=== PATIENT | female | born 1970 | race African-American/Black ===

== ENCOUNTER 2016-08-17 17:43 | Emergency (ER) | payer MEDICAID ==
[~2016-08-17] VITALS: Ht 170.2 cm; Wt 86.2 kg
[~2016-08-17 17:43] MED LIST: IBUPROFEN600 MG ORAL; TRAMADOL HCL50 MG ORAL
[2016-08-17] MEDS ORDERED: IBUPROFEN600 MG ORAL (19:06)
[2016-08-17 19:11] VITALS: BP 123/81
--- NOTE | 2016-08-17 22:02 | Emergency Room Report ---
History of Present Illness General Chief Complaint: Lower Extremity Injury Source: Patient Present Illness HPI The patient is a 46 old female presenting for left ankle pain. Patient states that she was hiking yesterday and felt the ankle buckle underneath her. She noticed pain at the time but denies any pain currently. She has noticed swelling to the ankle. She denies prior injury to the area. She denies any other symptoms including numbness, tingling, rash, calf pain Allergies: Coded Allergies: SULFAMETHOXAZOLE (Verified Allergy, Unknown, 08/11/15) TRIMETHOPRIM (Verified Allergy, Unknown, 08/11/15) Patient History Past Medical History: see triage record Last Menstrual Period: 08/16/16 Now: No : 2 Para: 2 Reviewed Nursing Documentation: PMH: Agreed, PSxH: Agreed Nursing Documentation-PMH Past Medical History: No Stated History Review of Systems All Other Systems: negative except mentioned in HPI Physical Exam Vital Signs Date Time Temp Pulse Resp B/P Pulse Ox O2 Delivery O2 Flow Rate FiO2 08/17/16 17:57 98.2 90 17 121/79 98 Room Air Sp02 EP Interpretation: reviewed, normal General Appearance: no apparent distress, alert, GCS 15, non-toxic Head: normocephalic, atraumatic Eyes: bilateral eye PERRL, bilateral eye normal inspection ENT: hearing grossly normal, normal pharynx, no angioedema, normal voice Neck: full range of motion, supple/symm/no masses Respiratory: chest non-tender, lungs clear, normal breath sounds, speaking full sentences Musculoskeletal: back normal, gait/station normal, normal range of motion, swelling, tender - lateral L ankle Neurologic: alert, oriented x3, responsive, motor strength/tone normal, sensory intact, speech normal Psychiatric: judgement/insight normal, memory normal, mood/affect normal, no suicidal/homicidal ideation Skin: normal color, no rash, warm/dry, well hydrated Lymphatic: no adenopathy Procedures Splinting Splinting : Consent: Verbal Location: L ankle Pre-Made Type: ESTEFANY wrap Pre-Proc Neuro Vasc Exam: normal Post-Proc Neuro Vasc Exam: normal Patient Tolerated: Well Complications: None Medical Decision Making PA Attestation Dr. Blancas is my supervising physician. Patient management was discussed with my supervising physician Diagnostic Impression: Primary Impression: Left ankle sprain Qualified Codes: S93.402A - Sprain of unspecified ligament of left ankle, initial encounter ER Course The patient is a 46 old female presenting for left ankle pain. Ddx considered include but not limited to sprain/strain, fracture, contusion Physical exam: Vitals within normal limits. No apparent distress Left ankle: There is tenderness to palpation and edema over the left lateral malleolus. Limited active range of motion. Sensation intact to light touch. X-ray of the left ankle is unremarkable Left ankle placed in ESTEFANY wrap and the patient is provided crutches. ER precautions are given. Patient given prescription for Motrin and will follow up with primary care physician. Other X-Ray Diagnostic Results Other X-Ray Diagnostic Results : X-Ray Ordered: L ankle Date: August 17, 2016 EP Interpretation: Yes Findings: no fractures, no dislocation, no soft tissue swelling Number of Views: 3 PA Scribe Text I am acting as scribe for my supervising physician. My supervising physician's interpretation of the L ankle xrays are there are no fractures, dislocations or soft tissue swelling. Last Vital Signs Date Time Temp Pulse Resp B/P Pulse Ox O2 Delivery O2 Flow Rate FiO2 08/17/16 19:11 87 14 123/81 99 Room Air 08/17/16 17:57 98.2 Status: improved Disposition: HOME, SELF-CARE Condition: Improved Scripts Ibuprofen* (MOTRIN*) 600 Mg Tablet 600 MG ORAL Q8H Y for For Pain, #30 TAB 0 Refills Prov: BLANCA RIDER 08/17/16 Patient Instructions: Ankle Sprain Additional Instructions: I discussed my findings with the patient. All questions and concerns have been answered. Treatment and medication compliance have been addressed. I advised the patient that they need to follow up with PMD in 3-5 days. Return to ED if pain remains or worsens, numbness or tingling occurs, new rash is noticed, fever is noticed, or if needed for any reason. Patient verbalized understanding of discharge instructions. BLANCA RIDER August 17, 2016 22:02
--- NOTE | 2016-08-18 12:24 | Diagnostic Imaging Report ---
Indication: PAIN Technique: 3 views of the left ankle Comparison: none Findings: No acute fractures. No dislocations. Joint spaces are preserved Impression: No acute process
== END 2016-08-17 19:17 | disposition home or self-care (01) ==
LOC: EMR 18:25
DX: S93.402A Sprain of unspecified ligament of left ankle, initial encounter (principal); X58.XXXA Exposure to other specified factors, initial encounter; Y93.01 Activity, walking, marching and hiking; Y92.9 Unspecified place or not applicable; Z88.2 Allergy status to sulfonamides; Z88.8 Allergy status to other drugs, medicaments and biological substances
CPT/HCPCS: 29540; 99283

== ENCOUNTER 2017-07-31 22:30 | Emergency (ER) | payer OTHER, MEDICAID ==
[~2017-07-31] VITALS: Ht 167.6 cm; Wt 90.7 kg
[2017-07-31] MEDS ORDERED: NKM (22:37)
[2017-07-31 22:39] VITALS: BP 105/71
[2017-07-31] MEDS ORDERED: IBUPROFEN600 MG ORAL (22:54)
[2017-07-31] MEDS ORDERED: PENICILLIN V P500 MG PO (22:54)
[2017-07-31] MEDS ORDERED: PERIDEX15 ML MM (22:56)
[2017-07-31 23:05] VITALS: BP 105/71
--- NOTE | 2017-08-01 00:46 | Emergency Room Report ---
History of Present Illness General Chief Complaint: Toothache Source: Patient Present Illness HPI Patient is a 47-year-old female who presented after increased dental pain. Patient gradual onset of symptoms. Patient reportedly had been noticing increased swelling near her upper left gums. The she denies any recent trauma. She had not been taking any antibiotics. She did not see a dentist.The patient denies any fever or other facial swelling. Allergies: Coded Allergies: SULFAMETHOXAZOLE (Verified Allergy, Unknown, 07/31/17) TRIMETHOPRIM (Verified Allergy, Unknown, 07/31/17) Patient History Past Medical History: see triage record Last Menstrual Period: 07/30/17 Now: No Reviewed Nursing Documentation: PMH: Agreed; PSxH: Agreed Nursing Documentation-PMH Past Medical History: No Stated History Review of Systems All Other Systems: negative except mentioned in HPI Physical Exam Vital Signs Date Time Temp Pulse Resp B/P (MAP) Pulse Ox O2 Delivery O2 Flow Rate FiO2 07/31/17 22:33 98.3 76 16 105/71 94 Room Air 98.2 General Appearance: well appearing, no apparent distress, alert, GCS 15 Head: normocephalic, atraumatic ENT: hearing grossly normal, normal voice, other - small amount of soft tissue swelling near left upper bicuspid area gingiva Neck: full range of motion, supple Respiratory: no respiratory distress, speaking full sentences Cardiovascular #1: normal peripheral pulses, regular rate, rhythm Musculoskeletal: no calf tenderness Neurologic: normal gait Psychiatric: mood/affect normal Skin: no rash Medical Decision Making Diagnostic Impression: Primary Impression: Dental infection ER Course The patient presented for dental pain.Differential diagnosis included but was not limited to trigeminal neuralgia, dental abscess, dry socket, osteomyelitis, nerve injury. The patient was noted to have a benign exam. The patient was given prescription for oral antibiotics to 2 white appears to be a gingival infection . The patient is advised to follow up with dentist in 1-2 days. Patient is advised to return if any worsening condition or if any changes in status that are concerning. Last Vital Signs Date Time Temp Pulse Resp B/P (MAP) Pulse Ox O2 Delivery O2 Flow Rate FiO2 07/31/17 23:05 98.3 07/31/17 23:05 76 16 105/71 94 Room Air Status: improved Disposition: HOME, SELF-CARE Condition: Stable Scripts Chlorhexidine Gluconate (Peridex) 15 Ml Mouthwash 15 ML MM TWICE A DAY, #120 ML Prov: Sergio Blancas 07/31/17 Penicillin V Potassium* (PENVK*) 500 Mg Tablet 500 MG PO Q6H, #28 TAB 0 Refills Prov: Sergio Blancas 07/31/17 Ibuprofen* (MOTRIN*) 600 Mg Tablet 600 MG ORAL THREE TIMES A DAY, #30 TAB 0 Refills Prov: Sergio Blancas 07/31/17 Referrals: NON PHYSICIAN (PCP) Patient Instructions: Dental Pain Sergio Blancas August 01, 2017 00:46
== END 2017-08-01 00:34 | disposition home or self-care (01) ==
LOC: EMR 08-01 00:18
DX: K04.7 Periapical abscess without sinus (principal); Z88.2 Allergy status to sulfonamides
CPT/HCPCS: 99284

== ENCOUNTER 2017-10-26 16:51 | Emergency (ER) | payer OTHER, MEDICAID ==
[~2017-10-26] VITALS: Ht 167.6 cm; Wt 90.7 kg
[~2017-10-26 16:51] MED LIST changes: +NKM; +PENICILLIN V P500 MG PO; +PERIDEX15 ML MM
--- NOTE | 2017-10-26 17:11 | Emergency Room Report ---
History of Present Illness General Chief Complaint: Lower Extremity Injury Source: Patient Present Illness HPI 47-year-old female patient presents ER complaining of left foot second digit toe pain. Reports that she was in the house yesterday walking to the door when she stubbed her toe on the couch. Reports she took Aleve yesterday for pain symptoms, states has not taken anything since that time. Reports pain and swelling at site of injury. Reports is able to ambulate since that time but walks on ball of foot due to pain. Reports not as painful so did not take medication today. Denies other acute symptoms. denies fever, chest pain, shortness of breath. Denies radiation of pain. Allergies: Coded Allergies: SULFAMETHOXAZOLE (Verified Allergy, Unknown, 07/31/17) TRIMETHOPRIM (Verified Allergy, Unknown, 07/31/17) Patient History Past Medical History: see triage record Last Menstrual Period: 10/11/17 Now: No Reviewed Nursing Documentation: PMH: Agreed; PSxH: Agreed Nursing Documentation-PMH Past Medical History: No Stated History Review of Systems All Other Systems: negative except mentioned in HPI Physical Exam Vital Signs Date Time Temp Pulse Resp B/P (MAP) Pulse Ox O2 Delivery O2 Flow Rate FiO2 10/26/17 16:56 98.1 79 16 113/75 97 Room Air 98.1 Sp02 EP Interpretation: reviewed, normal General Appearance: well appearing, no apparent distress, alert, GCS 15, non- toxic Head: normocephalic, atraumatic Eyes: bilateral eye normal inspection, bilateral eye PERRL ENT: hearing grossly normal, normal pharynx, no angioedema, normal voice, uvula midline, moist mucus membranes Neck: full range of motion Respiratory: lungs clear, normal breath sounds, no rhonchi, no respiratory distress, no accessory muscle use, no wheezing, speaking full sentences Cardiovascular #1: regular rate, rhythm, no edema Cardiovascular #2: 2+ dorsalis pedis (R), 2+ dorsalis pedis (L) Musculoskeletal: back normal, digits/nails normal, gait/station normal, normal range of motion, swelling - over left foot second digit, other - able to wiggle toes, cap refill less than 2 seconds, no subungual hematoma, sensation intact to light touch; ecchymosis noted over the MTP and DIP of left foot second digit , no deformity noted, tender - MTP joint of second digit Neurologic: alert, oriented x3, responsive, motor strength/tone normal, sensory intact Psychiatric: mood/affect normal Medical Decision Making PA Attestation Dr. Damico is my supervising Physician whom patient management has been discussed with. Diagnostic Impression: Primary Impression: Toe fracture, left ER Course Pt. presents to the ED c/o left foot second digit pain. Ddx considered but are not limited to fracture, sprain, strain, contusion, dislocation. No erythema, no warmth to touch, no fever, nontoxic appearing, low suspicion for septic joint. Vital signs: are WNL, pt. is afebrile Ordered X-ray and pain medication. ER COURSE Ordered acetone to remove nail indonesian, no subungal hematoma noted. Does not require trephination. Provided with pain medication. An X-ray of the left foot shows a fracture on the proximal phalanx of the second digit of the left toe. Informed patient of results. Toe was haleigh taped and put placed into a postop shoe and was checked afterwards by me showing good alignment and support with distal neurovascular functioning intact. Crutches provided. Provided with contact information for orthopedic urgent care and livestock dealer Dr. Alarcon if unable to followup with PCP and get referral. Patient instructed on RICE method: rest, ice, compression, elevation. Patient instructed on rest, ice and heat. Patient instructed to be WBAT Followup with primary care provider. Discuss referral to ortho/pain management/ PT as needed. Discuss further imaging with MRI/CT as needed. DISCHARGE: -Rx provided for Tylenol for pain symptoms. At this time pt. is stable for d/c to home. Patient is resting comfortably, in no acute distress, nontoxic appearing, talking without difficulty. Will provide printed patient care instructions, and any necessary prescriptions. Patient instructed to follow with primary care provider in 3 - 5 days and to request further follow-up as needed. Care plan and follow up instructions have been discussed with the patient prior to discharge. Take medications as directed. Patient questions asked and answered. Patient reports understanding and agreement to treatment plan. ER precautions given, patient instructed to return to ER immediately for any new or worsening of symptoms. - Please note that this Emergency Department Report was dictated using [employer] technology software, occasionally this can lead to erroneous entry secondary to interpretation by the dictation equipment. Other X-Ray Diagnostic Results Other X-Ray Diagnostic Results : X-Ray ordered: left foot # of Views/Limited Vs Complete: 3 View Indication: Pain EP Interpretation: Yes PA Xray: Interpretation reviewed, by supervising MD, and agrees with findings. Interpretation: no dislocation, no soft tissue swelling, other - fracture Impression: Other - nondisplaced fracture of proximal phalanx of second digit on left foot PA Scribe Text Jhony CANELA-Stephany Last Vital Signs Date Time Temp Pulse Resp B/P (MAP) Pulse Ox O2 Delivery O2 Flow Rate FiO2 10/26/17 16:56 98.1 79 16 113/75 97 Room Air 98.1 Disposition: HOME, SELF-CARE Condition: Stable Scripts Acetaminophen* (TYLENOL EXTRA STRENGTH*) 500 Mg Tablet 500 MG ORAL Q8H PRN for Prn Headache/Temp > 101, #30 TAB 0 Refills Prov: Ashutosh Hampton 10/26/17 Patient Instructions: Toe Fracture Additional Instructions: Patient instructed to follow up with primary care provider and discuss further referral to orthopedics. Provided with contact information for orthopedic urgent care and livestock dealer if unable to followup with PCP and get referral. Patient instructed on RICE method: rest, ice, compression, elevation. Patient instructed to WBAT. Take medications as directed. Patient questions asked and answered. ER precautions given, patient instructed to return to ER immediately for any new or worsening of symptoms. Ashutosh Hampton Oct 26, 2017 17:11
[2017-10-26] MEDS ORDERED: TYLENOL EXTRA500 MG ORAL (17:21)
[2017-10-26 17:46] VITALS: BP 122/71
[2017-10-26] MEDS ORDERED: Nail Polish Remover TOPIC ONE (18:00)
--- NOTE | 2017-10-27 08:20 | Diagnostic Imaging Report ---
Indication: Foot pain Technique: 3 views left foot Comparison: none Findings: No acute fractures. No dislocations. The joint spaces are preserved. Impression: Negative
== END 2017-10-26 17:46 | disposition home or self-care (01) ==
LOC: EMR 17:05
DX: S92.512A Displaced fracture of proximal phalanx of left lesser toe(s), initial encounter for closed fracture (principal); W22.03XA Walked into furniture, initial encounter; Y93.01 Activity, walking, marching and hiking; Y92.018 Other place in single-family (private) house as the place of occurrence of the external cause
CPT/HCPCS: 99283

== ENCOUNTER 2018-01-14 21:33 | Emergency (ER) | payer OTHER, MEDICAID ==
[~2018-01-14] VITALS: Ht 170.2 cm; Wt 86.2 kg
[~2018-01-14 21:33] MED LIST changes: +TYLENOL EXTRA500 MG ORAL
[2018-01-14 21:48] VITALS: BP 102/72
[2018-01-14] MEDS ORDERED: Clindamycin 150mg cap ORAL STA (22:08)
--- NOTE | 2018-01-14 22:12 | Emergency Room Report ---
History of Present Illness General Chief Complaint: Skin Rash/Abscess Source: Patient Present Illness HPI Patient presents with multiple bites on her arms and neck. She works on [employer]. She says they've been itching and also swelling and there is some redness. She doesn't remember her last tetanus shot. She denies any nausea vomiting diarrhea dysuria a sore throat cough. The patient states she cannot take Bactrim. Denies diabetes. Allergies: Coded Allergies: SULFAMETHOXAZOLE (Verified Allergy, Unknown, 07/31/17) TRIMETHOPRIM (Verified Allergy, Unknown, 07/31/17) Patient History Past Medical History: see triage record Social History: Reports: smoking Social History Narrative works on [employer] Last Menstrual Period: 01/07/18 Reviewed Nursing Documentation: PMH: Agreed; PSxH: Agreed Nursing Documentation-PMH Past Medical History: No Stated History Review of Systems Constitutional: Denies: chills, fever ENT: Reports: see HPI Respiratory: Reports: see HPI Cardiovascular: Denies: chest pain Gastrointestinal: Reports: see HPI Musculoskeletal: Denies: back pain, joint pain, joint swelling Skin: Reports: see HPI Neurological: Denies: headache Endocrine: Reports: see HPI Physical Exam Vital Signs Date Time Temp Pulse Resp B/P (MAP) Pulse Ox O2 Delivery O2 Flow Rate FiO2 01/14/18 21:44 99.1 84 16 102/72 96 Room Air 99.1 Sp02 EP Interpretation: reviewed, normal General Appearance: normal inspection, well appearing, no apparent distress Head: normocephalic, atraumatic Eyes: bilateral eye normal inspection, bilateral eye PERRL ENT: moist mucus membranes Neck: full range of motion, supple Respiratory: lungs clear Cardiovascular #1: normal peripheral pulses, regular rate, rhythm Cardiovascular #2: 2+ radial (R) Gastrointestinal: normal inspection Musculoskeletal: back normal, digits/nails normal, gait/station normal, normal range of motion Neurologic: alert, oriented x3, grossly normal Psychiatric: mood/affect normal Skin: other - erthematous lesions with some swelling Medical Decision Making Diagnostic Impression: Primary Impression: Bug bites Qualified Codes: W57.XXXA - Bitten or stung by nonvenomous insect and other nonvenomous arthropods, initial encounter Additional Impression: MRSA (methicillin resistant Staphylococcus aureus) ER Course Patient presents with multiple bites with erythema. None are fluctuance and do not need incision and drainage. However antibiotics and tetanus are indicated. Unable to take bactrim, so clindamycin will be used. Not toxic. No co-morbidities. No evidence of typhus. Patient stable for outpatient observation and treatment. Last Vital Signs Date Time Temp Pulse Resp B/P (MAP) Pulse Ox O2 Delivery O2 Flow Rate FiO2 01/14/18 23:17 99.1 78 16 102/72 96 Room Air 99.1 Status: improved Disposition: HOME, SELF-CARE Condition: Improved Scripts Bacitracin (Bacitracin) 28.4 Gm Oint...g. 1 APPLIC TOPIC BID, #20 GM Prov: Jose A Ovalle M.D. 01/14/18 Hydrocortisone/Aloe Vera 1%* (HYDROCORTISONE-ALOE 1% CREAM*) Y Cr 1 APPLIC TOPIC Q6H PRN for Itching, #30 GM Prov: Jose A Ovalle M.D. 01/14/18 Clindamycin Hcl (CLINDAMYCIN HCL) 300 Mg Capsule 300 MG ORAL THREE TIMES A DAY, #21 CAP Prov: Jose A Ovalle M.D. 01/14/18 Jose A Ovalle M.D. Jan 14, 2018 22:12
[2018-01-14] MEDS ORDERED: CLINDAMYCIN HC300 MG ORAL (22:14)
[2018-01-14] MEDS ORDERED: BACITRACIN15 GM TOPIC (22:14)
[2018-01-14] MEDS ORDERED: HYDROCORTISONE-30 GM TOPIC (22:14)
[2018-01-14] MEDS ORDERED: Tetanus/Diptheria/Pertussis Vaccine 0.5ml Syr IM ONE (22:15)
[2018-01-14] MEDS ORDERED: Bacitracin Oint UD TOPIC ONE (22:15)
[2018-01-14 23:17] VITALS: BP 102/72
== END 2018-01-14 23:17 | disposition home or self-care (01) ==
LOC: EMR 22:14
DX: S40.862A Insect bite (nonvenomous) of left upper arm, initial encounter (principal); S40.861A Insect bite (nonvenomous) of right upper arm, initial encounter; S10.96XA Insect bite of unspecified part of neck, initial encounter; W57.XXXA Bitten or stung by nonvenomous insect and other nonvenomous arthropods, initial encounter; Y92.9 Unspecified place or not applicable; A49.02 Methicillin resistant Staphylococcus aureus infection, unspecified site; Z23 Encounter for immunization; Z88.2 Allergy status to sulfonamides; F17.200 Nicotine dependence, unspecified, uncomplicated
CPT/HCPCS: 90471; 90715; 99283

== ENCOUNTER 2018-01-25 19:41 | Emergency (ER) | payer OTHER, MEDICAID ==
[~2018-01-25] VITALS: Ht 170.2 cm; Wt 86.2 kg
[~2018-01-25 19:41] MED LIST changes: +BACITRACIN15 GM TOPIC; +CLINDAMYCIN HC300 MG ORAL; +HYDROCORTISONE-30 GM TOPIC
[2018-01-25 19:48] VITALS: BP 114/73
[2018-01-25] MEDS ORDERED: PREDNISONE20 MG ORAL (20:12)
[2018-01-25] MEDS ORDERED: BENADRYL25 M3 PO (20:12)
--- NOTE | 2018-01-25 20:16 | Emergency Room Report ---
History of Present Illness General Chief Complaint: Skin Rash/Abscess Source: Patient Present Illness HPI Patient present with complaints of several areas of redness and what appears to be likely insect bite involving the left shoulder Right back area Right leg The areas are fairly puritic in nature Patient denies any fevers denies any chest pain or short of breath Patient reports that she worse in skin a row And had similar presentation last week Allergies: Coded Allergies: SULFAMETHOXAZOLE (Verified Allergy, Unknown, 01/25/18) TRIMETHOPRIM (Verified Allergy, Unknown, 01/25/18) Patient History Past Medical History: see triage record Pertinent Family History: none Last Menstrual Period: currently on Reviewed Nursing Documentation: PMH: Agreed; PSxH: Agreed Nursing Documentation-PMH Past Medical History: No Stated History Review of Systems All Other Systems: negative except mentioned in HPI Physical Exam Vital Signs Date Time Temp Pulse Resp B/P (MAP) Pulse Ox O2 Delivery O2 Flow Rate FiO2 01/25/18 19:47 98.4 87 16 114/73 98 Room Air Sp02 EP Interpretation: reviewed, normal General Appearance: well appearing, no apparent distress Head: normocephalic, atraumatic Eyes: bilateral eye PERRL, bilateral eye EOMI ENT: hearing grossly normal, normal pharynx, TMs + canals normal, uvula midline Neck: full range of motion, supple, no meningismus, no bony tend Respiratory: lungs clear, normal breath sounds, no rhonchi, no respiratory distress, no retraction, no accessory muscle use Cardiovascular #1: normal peripheral pulses, regular rate, rhythm, no edema, no gallop, no JVD, no murmur Gastrointestinal: normal bowel sounds, non tender, soft, no mass, no organomegaly, non-distended, no guarding, no hernia, no pulsatile mass, no rebound Musculoskeletal: normal inspection Neurologic: oriented x3, responsive, director of customer service III-XII nml as tested, motor strength/ tone normal, sensory intact Psychiatric: mood/affect normal Skin: other - Several areas of raised erythematous lesions including the left back shoulder right flank region, dorsal of the right foot fall areas are fairly well circumscribed does not show any flaring or fluctuance no dermatomal spread,,, Lymphatic: normal inspection, no adenopathy Medical Decision Making Diagnostic Impression: Primary Impression: Rash and other nonspecific skin eruption Additional Impression: Bug bites ER Course Patient's exam is consistent with what appears to be localized reaction to insect bite patient is treated symptomatically I cannot appreciate any obvious infected area And patient will have close outpatient follow-up Last Vital Signs Date Time Temp Pulse Resp B/P (MAP) Pulse Ox O2 Delivery O2 Flow Rate FiO2 01/25/18 19:48 98.4 84 16 114/73 98 Room Air Status: improved Disposition: HOME, SELF-CARE Condition: Improved Scripts Prednisone* (PREDNISONE*) 20 Mg Tablet 20 MG ORAL BID, #10 TAB Prov: Monica Damico DO 01/25/18 Diphenhydramine HCl (Benadryl) 25 Mg Capsule 25 MG PO TID, #20 CAP Prov: Monica Damico DO 01/25/18 Patient Instructions: Rash, Insect Bite, [id number] Additional Instructions: Patient is provided with the discharge instructions notified to follow up with primary doctor in the next 2-3 days otherwise return to the er with any worsening symptoms. Please note that this report is being documented using [employer] technology. This can lead to erroneous entry secondary to incorrect interpretation by the dictating instrument. Monica Damico DO Jan 25, 2018 20:16
[2018-01-25 20:26] VITALS: BP 114/73
== END 2018-01-25 20:30 | disposition home or self-care (01) ==
LOC: EMR 20:23
DX: R21 Rash and other nonspecific skin eruption (principal); W57.XXXA Bitten or stung by nonvenomous insect and other nonvenomous arthropods, initial encounter; Y92.9 Unspecified place or not applicable; Z88.2 Allergy status to sulfonamides
CPT/HCPCS: 99283; J7512

== ENCOUNTER 2018-10-11 20:42 | Emergency (ER) | payer MEDICAID, OTHER ==
[~2018-10-11] VITALS: Ht 170.2 cm; Wt 90.7 kg
[~2018-10-11 20:42] MED LIST changes: +BENADRYL25 M3 PO; +PREDNISONE20 MG ORAL
--- NOTE | 2018-10-11 21:05 | NUR ---
ED Nurse Note: RECIEVED PT FROM HOME, WITH C/O VAG BLEEDING X 15 DAYS, PT STATES SHE IS IN MENOPAUSE, DENIES ANY OTHER COMPLAINTS.
--- NOTE | 2018-10-11 21:09 | Emergency Room Report ---
History of Present Illness General Chief Complaint: Female Urogenital Problems Source: Patient Present Illness [facility] This a 48-year-old female with a history of blood clots. She is also a smoker. She presents with chief complaint of vaginal bleeding. This been ongoing for 15 days. She says she is bleeding heavily. About 10 pads a day. No nausea no vomiting. Now with some lightheadedness. No chest pain. No diaphoresis. Worse with exertion. Similar symptom in the past. Has not seen a mannequin molder. She said her appointment will be for another 2 weeks. Allergies: Coded Allergies: SULFAMETHOXAZOLE (Verified Allergy, Unknown, 01/25/18) TRIMETHOPRIM (Verified Allergy, Unknown, 01/25/18) Patient History Past Medical History: see triage record, old chart reviewed Past Surgical History: other Pertinent Family History: none Social History: Reports: smoking Last Menstrual Period: now Now: No Immunizations: other Reviewed Nursing Documentation: PMH: Agreed; PSxH: Agreed Nursing Documentation-PMH Past Medical History: No Stated History Review of Systems Eye: Denies: eye pain, blurred vision ENT: Denies: ear pain, nose congestion, throat swelling Respiratory: Denies: cough, shortness of breath Cardiovascular: Denies: chest pain, palpitations Gastrointestinal: Denies: abdominal pain, diarrhea, nausea, vomiting Genitourinary: Reports: vag bleed/dc Musculoskeletal: Denies: back pain, joint pain Skin: Denies: rash Neurological: Denies: headache, numbness Endocrine: Denies: increased thirst, increased urine Hematologic/Lymphatic: Denies: easy bruising All Other Systems: negative except mentioned in HPI Physical Exam Vital Signs Date Time Temp Pulse Resp B/P (MAP) Pulse Ox O2 Delivery O2 Flow Rate FiO2 10/11/18 20:53 98.1 85 20 115/77 (90) 97 Room Air Vitals normal Sp02 EP Interpretation: reviewed, normal General Appearance: well appearing, no apparent distress, alert Head: normocephalic, atraumatic Eyes: bilateral eye PERRL, bilateral eye EOMI ENT: hearing grossly normal, normal pharynx Neck: full range of motion, supple, no meningismus Respiratory: chest non-tender, lungs clear, normal breath sounds Cardiovascular #1: regular rate, rhythm, no murmur Gastrointestinal: normal bowel sounds, non tender, no mass, no organomegaly, no bruit, non-distended Musculoskeletal: back normal, gait/station normal, normal range of motion Psychiatric: mood/affect normal Medical Decision Making Diagnostic Impression: Primary Impression: Dysfunctional uterine bleeding ER Course Patient presents with dysfunctional uterine bleeding. No evidence of severe anemia. Initially patient was to be put on control pill to control her eating. I told the patient that she is has several occasion. Her age, current smoking status, and blood clot history or contraindication. There is no emergent issue here in the ER. She can be follow-up with mannequin molder. Last Vital Signs Date Time Temp Pulse Resp B/P (MAP) Pulse Ox O2 Delivery O2 Flow Rate FiO2 10/11/18 20:53 98.1 85 20 115/77 (90) 97 Room Air Status: unchanged Disposition: HOME, SELF-CARE Condition: Stable Scripts Ibuprofen* (MOTRIN*) 600 Mg Tablet 600 MG ORAL THREE TIMES A DAY, #30 TAB 0 Refills Prov: Bogdan Rios MD 10/11/18 Additional Instructions: Follow-up with your mannequin molder in 1 to 2 weeks. Return if symptoms worsen. Bogdan Rios MD Oct 11, 2018 21:09
[2018-10-11 21:26] LABS: BASOPHILS % (AUTO) 2.4 % (0.0-2.0); EOSINOPHILS % (AUTO) 2.2 % (0.0-3.0); HEMATOCRIT 35.2 % (37.0-47.0); HEMOGLOBIN 12.1 G/DL (12.0-16.0); MEAN CORPUSCULAR VOLUME 93 FL (80-99); MONOCYTES % (AUTO) 6.1 % (1.0-10.0); NEUTROPHILS % (AUTO) 48.3 % (45.0-75.0); PLATELET COUNT 277 K/UL (150-450); RED BLOOD COUNT 3.77 M/UL (4.20-5.40); RED CELL DISTRIBUTION WIDTH 12.1 % (11.6-14.8); WHITE BLOOD COUNT 6.3 K/UL (4.8-10.8)
[2018-10-11 21:40] LABS: APPEARANCE,URINE CLOUDY; BILIRUBIN, URINE NEGATIVE (NEGATIVE); COLOR,URINE PALE YELLOW; GLUCOSE, URINE (UA) NEGATIVE (NEGATIVE); KETONES,URINE NEGATIVE (NEGATIVE); LEUKOCYTE ESTERASE ,URINE 1+ (NEGATIVE); NITRITE,URINE NEGATIVE (NEGATIVE); PH,URINE 6.5 (4.5-8.0); PROTEIN,URINE 1+ (NEGATIVE); UROBILINOGEN,URINE NORMAL MG/DL (0.0-1.0)
[2018-10-11] MEDS ORDERED: IBUPROFEN600 MG ORAL (21:51)
[2018-10-11 22:00] VITALS: BP 115/77
--- NOTE | 2018-10-11 22:00 | NUR ---
ER DISCHARGE NOTE: Patient is cleared to be discharged per ERMD, pt is aox4, on room air, with stable vital signs. pt was given dc and prescription instructions, pt was able to verbalize understanding, pt id band removed without complications. pt is able to ambulate with steady gait. pt took all belongings.
== END 2018-10-11 22:00 | disposition home or self-care (01) ==
LOC: EMR 21:58
DX: N93.9 Abnormal uterine and vaginal bleeding, unspecified (principal); F17.200 Nicotine dependence, unspecified, uncomplicated; Z88.2 Allergy status to sulfonamides; Z88.8 Allergy status to other drugs, medicaments and biological substances
CPT/HCPCS: 36415; 81003; 81025; 85025; 99284

== ENCOUNTER 2018-12-10 20:08 | Emergency (ER) | payer BC ==
[~2018-12-10] VITALS: Ht 170.2 cm; Wt 93.0 kg
[2018-12-10 20:15] VITALS: BP 129/82
--- NOTE | 2018-12-10 20:15 | NUR ---
ED Nurse Note: pt ambulated to ed c/o "difficulty breathing". pt denies, hx of asthma and COPD. pt states she quit smoking two weeks ago. bilateral lung sounds clear. slight audible wheezes on expiration. pt is able to speak complete sentences without shortness of breath. son - chris at bedside.
--- NOTE | 2018-12-10 20:15 | NUR ---
Note undone in EDM - 12/10/18 at 2032 by LENNY ED Nurse Note: pt ambulated to ed c/o "difficulty breathing". pt denies, hx of asthma, COPD, or HTN. pt states she quit smoking two weeks ago. bilateral lung sounds clear. slight audible wheezes on expiration. pt is able to speak complete sentences without shortness of breath. burton perez at bedside.
--- NOTE | 2018-12-10 20:40 | NUR ---
ED Nurse Note: IV line established, blood specimen sent to lab. RT at bedside
[2018-12-10] MEDS ORDERED: Albuterol ud Inhalation HHN ONE (20:45)
[2018-12-10 20:55] VITALS: BP_SYST 117; BP_SYST 121; BP_SYST 123; BP_DIAS 73; BP_DIAS 76
[2018-12-10 20:55] LABS: BASOPHILS % (AUTO) 2.1 % (0.0-2.0); EOSINOPHILS % (AUTO) 2.1 % (0.0-3.0); HEMATOCRIT 37.9 % (37.0-47.0); MEAN CORPUSCULAR VOLUME 93 FL (80-99); MONOCYTES % (AUTO) 10.1 % (1.0-10.0); NEUTROPHILS % (AUTO) 43.7 % (45.0-75.0); PLATELET COUNT 300 K/UL (150-450); RED BLOOD COUNT 4.09 M/UL (4.20-5.40); RED CELL DISTRIBUTION WIDTH 12.1 % (11.6-14.8); WHITE BLOOD COUNT 6.8 K/UL (4.8-10.8)
--- NOTE | 2018-12-10 20:55 | NUR ---
ED Nurse Note: xray complete
--- NOTE | 2018-12-10 21:04 | Emergency Room Report ---
History of Present Illness General Chief Complaint: Dyspnea/Respdistress Source: Patient, Family Member, Medical Record Present Illness HPI Patient presents with dyspnea on exertion and resting dyspnea. This is been going on for a month according to her son but the patient states it worsened over the last 2 weeks. She has minimal exertional dyspnea at this time. She was recently admitted November 26 at [facility] and had a evaluation with echocardiogram chest x-ray and noninvasive vascular study of lower extremities. There is no access to the echocardiogram results but d-dimer was negative as were other labs. No medications were prescribed at discharge. The patient denies fever or productive cough. She stopped smoking a week ago. She has not heard herself wheezing. She initially stated she never had used an inhaler although she had childhood asthma. Later she admits to using an inhaler 4 times a day. Particularly in the last 2 days. It does not seem to be helping. Denies chest pain per se but feels chest pressure with when she is walking. She denies any calf pain or edema. Her periods are starting to become irregular. Her mother went through menopause at an earlier age than she. She has not been evaluated for menopausal symptoms recently. She has some stress with her job. 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 In addition later she describes that her mother has stage IV cancer and she is been trying to care for her in addition to working. 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 Reviewed Nursing Documentation: PMH: Agreed; PSxH: Agreed Nursing Documentation-PMH Past Medical History: No History, Except For Hx Hypertension: Yes Review of Systems All Other Systems: negative except mentioned in HPI Physical Exam Vital Signs Date Time Temp Pulse Resp B/P (MAP) Pulse Ox O2 Delivery O2 Flow Rate FiO2 12/10/18 20:13 98.6 61 18 129/82 (98) 98 Room Air Sp02 EP Interpretation: reviewed, normal General Appearance: well appearing, no apparent distress, GCS 15 Head: normocephalic, atraumatic Eyes: bilateral eye normal inspection, bilateral eye PERRL, bilateral eye EOMI ENT: moist mucus membranes Neck: supple Respiratory: chest non-tender, lungs clear, normal breath sounds Cardiovascular #1: regular rate, rhythm, no edema Cardiovascular #2: 2+ radial (R) Gastrointestinal: normal inspection, normal bowel sounds, non tender, no mass, non-distended Genitourinary: no CVA tenderness Musculoskeletal: back normal, digits/nails normal, gait/station normal, normal range of motion, no calf tenderness, Major's Sign negative Neurologic: alert, oriented x3, grossly normal Psychiatric: depressed affect, anxious Skin: no rash, warm/dry Medical Decision Making Diagnostic Impression: Primary Impression: Dyspnea Qualified Codes: R06.09 - Other forms of dyspnea Additional Impressions: Situational stress Bronchospasm Perimenopausal ER Course Patient presents with dyspnea and dyspnea on exertion post evaluation at [facility] 2 weeks ago which was negative. Differential includes atypical chest pain, unstable angina, bronchospasm, anxiety, electrolyte imbalance, pulmonary embolus, perimenopausal amongst others. Based on her physical exam pulmonary embolus is very unlikely. As she had a hypotension there orthostatics will be performed here. Evaluation with EKG, chest x-ray and labs. A breathing treatment is ordered. The patient is placed on a phototypesetting equipment monitor. Records from [facility] reviewed in detail. EKG normal sinus rhythm with nonspecific ST-T wave changes rate of 61. Labs unremarkable. Some pyuria however contaminated specimen. Patient is not orthostatic. Patient improved with treatment. Less dyspnea. Discussed findings with patient and exclusion of significant life-threatening cardiopulmonary disease at this time. Discussed most likely etiologies for dyspnea Provided support for smoking cessation. Discussed recognition of significant stress. Also discussed plan for treatment with prednisone and also Ativan. Stressed the need for follow-up with her own doctors. Discussed treatment plan with patient and son. Patient improved and stable for outpatient observation and treatment. Laboratory Tests Test 12/10/18 20:40 12/10/18 21:00 White Blood Count 6.8 K/UL (4.8-10.8) Red Blood Count 4.09 M/UL (4.20-5.40) L Hemoglobin 13.0 G/DL (12.0-16.0) Hematocrit 37.9 % (37.0-47.0) Mean Corpuscular Volume 93 FL (80-99) Mean Corpuscular Hemoglobin 31.6 PG (27.0-31.0) H Mean Corpuscular Hemoglobin Concent 34.2 G/DL (32.0-36.0) Red Cell Distribution Width 12.1 % (11.6-14.8) Platelet Count 300 K/UL (150-450) Mean Platelet Volume 5.7 FL (6.5-10.1) L Neutrophils (%) (Auto) 43.7 % (45.0-75.0) L Lymphocytes (%) (Auto) 42.0 % (20.0-45.0) Monocytes (%) (Auto) 10.1 % (1.0-10.0) H Eosinophils (%) (Auto) 2.1 % (0.0-3.0) Basophils (%) (Auto) 2.1 % (0.0-2.0) H Erythrocyte Sedimentation Rate 24 MM/HR (0-20) H Prothrombin Time 13.1 SEC (9.30-11.50) H Prothrombin Time INR 1.2 (0.9-1.1) H PTT 44 SEC (23-33) H Sodium Level 143 MMOL/L (136-145) Potassium Level 4.1 MMOL/L (3.5-5.1) Chloride Level 108 MMOL/L (98-107) H Carbon Dioxide Level 27 MMOL/L (21-32) Anion Gap 8 mmol/L (5-15) Blood Urea Nitrogen 8 mg/dL (7-18) Creatinine 0.7 MG/DL (0.55-1.30) Estimate Glomerular Filtration Rate > 60 mL/min (>60) Glucose Level 96 MG/DL (74-106) Calcium Level 9.1 MG/DL (8.5-10.1) Magnesium Level 1.9 MG/DL (1.8-2.4) Total Bilirubin 0.4 MG/DL (0.2-1.0) Aspartate Amino Transferase (AST) 17 U/L (15-37) Alanine Aminotransferase (ALT) 16 U/L (12-78) Alkaline Phosphatase 75 U/L (46-116) Total Creatine Kinase 121 U/L (26-308) Troponin I 0.000 ng/mL (0.000-0.056) Pro-B-Type Natriuretic Peptide 17 pg/mL (0-125) Total Protein 7.0 G/DL (6.4-8.2) Albumin 3.5 G/DL (3.4-5.0) Globulin 3.5 g/dL Albumin/Globulin Ratio 1.0 (1.0-2.7) Thyroid Stimulating Hormone (TSH) 2.583 uiU/mL (0.358-3.740) Urine Color Pale yellow Urine Appearance Clear Urine pH 8 (4.5-8.0) Urine Specific [place] 1.010 (1.005-1.035) Urine Protein Negative (NEGATIVE) Urine Glucose (UA) Negative (NEGATIVE) Urine Ketones Negative (NEGATIVE) Urine Blood Negative (NEGATIVE) Urine Nitrite Negative (NEGATIVE) Urine Bilirubin Negative (NEGATIVE) Urine Urobilinogen Normal MG/DL (0.0-1.0) Urine Leukocyte Esterase 3+ (NEGATIVE) H Urine RBC 0 /HPF (0 - 2) Urine WBC 10-15 /HPF (0 - 2) H Urine Squamous Epithelial Cells Few /LPF (NONE/OCC) Urine Bacteria Occasional /HPF (NONE) Urine HCG, Qualitative Negative (NEGATIVE) EKG Diagnostic Results Rate: normal Rhythm: NSR ST Segments: no acute changes Rhythm Strip Diag. Results EP Interpretation: yes Rhythm: NSR, no PVC's, no ectopy Chest X-Ray Diagnostic Results Chest X-Ray Diagnostic Results : Chest X-Ray Ordered: Yes # of Views/Limited/Complete: 1 View Indication: Shortness of Breath EP Interpretation: Yes Interpretation: no consolidation, no effusion, no pneumothorax Impression: No acute disease Electronically Signed by: Electronically signed by Jose A Ovalle MD Last Vital Signs Date Time Temp Pulse Resp B/P (MAP) Pulse Ox O2 Delivery O2 Flow Rate FiO2 12/10/18 23:00 98.7 62 16 112/71 95 Room Air 12/10/18 21:09 21 Status: improved Disposition: HOME, SELF-CARE Condition: Improved Scripts Lorazepam* (ATIVAN*) 0.5 Mg Tablet 0.5 MG ORAL THREE TIMES A DAY, #6 TAB Prov: Jose A Ovalle MD 12/10/18 Prednisone* (PREDNISONE*) 20 Mg Tablet 20 MG ORAL DAILY, #5 TAB Prov: Jose A Ovalle MD 12/10/18 Jose A Ovalle MD Dec 10, 2018 21:04
[2018-12-10 21:06] LABS: ANION GAP 8 mmol/L (5-15); BLOOD UREA NITROGEN 8 mg/dL (7-18); CALCIUM 9.1 MG/DL (8.5-10.1); CARBON DIOXIDE 27 MMOL/L (21-32); CHLORIDE 108 MMOL/L (98-107); CREATININE 0.7 MG/DL (0.55-1.30); POTASSIUM 4.1 MMOL/L (3.5-5.1); SODIUM 143 MMOL/L (136-145)
[2018-12-10 21:08] LABS: INR 1.2 (0.9-1.1)
--- NOTE | 2018-12-10 21:08 | NUR ---
ED Nurse Note: hand held neb treatment completed.
[2018-12-10 21:10] LABS: APPEARANCE,URINE CLEAR; BILIRUBIN, URINE NEGATIVE (NEGATIVE); COLOR,URINE PALE YELLOW; GLUCOSE, URINE (UA) NEGATIVE (NEGATIVE); KETONES,URINE NEGATIVE (NEGATIVE); LEUKOCYTE ESTERASE ,URINE 3+ (NEGATIVE); NITRITE,URINE NEGATIVE (NEGATIVE); PH,URINE 8 (4.5-8.0); PROTEIN,URINE NEGATIVE (NEGATIVE); UROBILINOGEN,URINE NORMAL MG/DL (0.0-1.0)
[2018-12-10 21:17] LABS: ALANINE AMINOTRANSFERASE 16 U/L (12-78); ALBUMIN 3.5 G/DL (3.4-5.0); ALKALINE PHOSPHATASE 75 U/L (46-116); ASPARTATE AMINO TRANSFERASE 17 U/L (15-37); BILIRUBIN,TOTAL 0.4 MG/DL (0.2-1.0); CREATINE KINASE 121 U/L (26-308)
--- NOTE | 2018-12-10 21:40 | Diagnostic Imaging Report ---
EXAM: XR Chest, 1 View CLINICAL HISTORY: DYSPNEA TECHNIQUE: Frontal view of the chest. COMPARISON: No relevant prior studies available. FINDINGS: Lungs: No consolidation or mass. Pleural space: No acute findings Heart: No cardiomegaly. Mediastinum: Unremarkable. Bones joints: No acute findings. IMPRESSION: No acute cardiopulmonary process.
[2018-12-10] MEDS ORDERED: PREDNISONE20 MG ORAL (22:52)
[2018-12-10] MEDS ORDERED: ATIVAN0.5 MG ORAL (22:52)
[2018-12-10 23:00] VITALS: BP 112/71
[2018-12-10] MEDS ORDERED: LORazepam 0.5mg tab ORAL ONE (23:00)
--- NOTE | 2018-12-10 23:00 | NUR ---
ER DISCHARGE NOTE: Patient is cleared to be discharged per ERMD, pt is aox4, on room air, with stable vital signs. pt was given dc and prescription instructions, pt was able to verbalize understanding, pt id band and iv site removed without complications. pt is able to ambulate with steady gait. pt took all belongings. pt accomopanied by son.
--- NOTE | 2018-12-12 11:15 | Cardiology Report ---
APPROVED REPORT EKG Measurement Heart [id number] Normal sinus rhythm Cannot rule out Anterior infarct, age undetermined Abnormal ECG
== END 2018-12-10 23:00 | disposition home or self-care (01) ==
LOC: EMR 22:50
DX: J98.01 Acute bronchospasm (principal); Z78.0 Asymptomatic menopausal state; F43.9 Reaction to severe stress, unspecified; R06.09 Other forms of dyspnea; I10 Essential (primary) hypertension; Z88.2 Allergy status to sulfonamides; Z88.1 Allergy status to other antibiotic agents; Z87.891 Personal history of nicotine dependence
CPT/HCPCS: 36415; 71045; 80053; 81003; 81025; 82550; 83735; 83880; 84443; 84484; 85025; 85610; 85651; 85730; 87086; 93005; 94640; 99284; J7512

== ENCOUNTER 2018-12-15 22:42 | Emergency (ER) | payer BC, OTHER ==
[~2018-12-15] VITALS: Ht 170.2 cm; Wt 90.7 kg
[~2018-12-15 22:42] MED LIST changes: +ATIVAN0.5 MG ORAL
[2018-12-15] MEDS ORDERED: ALBUTEROL2.5 MG/3 M INH (22:52)
--- NOTE | 2018-12-15 23:00 | NUR ---
ED Nurse Note: Pt ambulated to ED from home c/o SOB since 190, pt hx asthma, states she is out of her prednisone and the inhaler isn't helping. Pt A&Ox4. Spo2 100% on RA
[2018-12-15 23:15] VITALS: BP 118/75
[2018-12-15] MEDS ORDERED: Mylanta II UD 30ml ORAL ONE (23:30)
[2018-12-15] MEDS ORDERED: Dicyclomine HCl 10mg/5ml oral soln ORAL ONE (23:30)
[2018-12-15] MEDS ORDERED: Albuterol ud Inhalation HHN ONE (23:30)
[2018-12-15] MEDS ORDERED: Lidocaine 2% Visc 15ml soln ORAL ONE (23:30)
[2018-12-15] MEDS ORDERED: Ipratropium 0.02% Inh Soln 2.5ml UD HHN ONE (23:30)
--- NOTE | 2018-12-15 23:32 | Emergency Room Report ---
History of Present Illness General Chief Complaint: Asthma Source: Patient Present Illness HPI Disclaimer: Please note that this report is being documented using DRAGON technology. This can lead to erroneous entry secondary to incorrect interpretation by the dictating instrument. HPI: This 48-year-old female with no reported medical history presents for evaluation of dyspnea and chest tightness. Patient states symptoms began earlier today though she has been seen in the emergency department for similar symptoms over the past month. Recently, she was in the emergency department approximately 1 week ago and treated for both anxiety and possible asthma/ bronchitis with an albuterol inhaler and 40 mg prednisone daily. She states that because her PMD appointment was not for several weeks she wanted the prednisone to last and was only taking 20 mg daily. She stopped taking prednisone yesterday and symptoms returned today. She notes tightness in the chest, nonspecific pressure which is discomfort and difficulty breathing. This occurred at rest. Not associated with exertion. Was not getting significant relief from her albuterol inhaler. She is only mild symptoms at this time. Denies any recent fever, cough, vomiting, diarrhea or URI symptoms. She has been complaining of urinary frequency. PMH: None PSH: See chart Allergies: Sulfa medications Social Hx: Quit smoking 2 weeks ago Allergies: Coded Allergies: SULFAMETHOXAZOLE (Verified Allergy, Unknown, 01/25/18) TRIMETHOPRIM (Verified Allergy, Unknown, 01/25/18) Patient History Last Menstrual Period: 12/03/18 Now: No Nursing Documentation-PMH Past Medical History: No History, Except For Hx Hypertension: Yes Hx Asthma: Yes Review of Systems All Other Systems: negative except mentioned in HPI Physical Exam Vital Signs Date Time Temp Pulse Resp B/P (MAP) Pulse Ox O2 Delivery O2 Flow Rate FiO2 12/15/18 22:47 97.9 75 27 118/75 (89) 97 Room Air General: Awake and alert, no acute distress HEENT: NC/AT. EOMI. Cardiovascular: RRR. S1 and S2 normal. No murmur appreciated Resp: Normal work of breathing. No cough, wheezing or crackles appreciated Abdomen: Abdomen is soft, nondistended. Nontender Skin: Intact. No abrasions, laceration or rash over the exposed skin MSK: Normal tone and bulk. Moving all extremities. No obvious deformity. No unilateral calf swelling or tenderness. No lower extremity edema Neuro: Awake and alert. Mentating appropriately. Medical Decision Making Diagnostic Impression: Primary Impression: Dyspnea ER Course Is a 48-year-old female recently seen in the emergency department for dyspnea and chest discomfort presenting with similar symptoms today. Differential includes was not limited to bronchitis, pneumonia, asthma, pneumothorax, ACS, angina, PE. Patient reportedly had a negative d-dimer at outside hospital 2 weeks ago. She is not hypoxic, not tachycardic and overall has few risk factors. Will obtain cardiac labs, d-dimer, chest x-ray and give empiric treatments with albuterol and ipratropium. Monitor for improvement and ultimate disposition will depend on lab work and patient improvement Laboratory Tests Test 12/16/18 00:10 12/16/18 01:15 White Blood Count 9.7 K/UL (4.8-10.8) Red Blood Count 4.07 M/UL (4.20-5.40) L Hemoglobin 12.9 G/DL (12.0-16.0) Hematocrit 37.4 % (37.0-47.0) Mean Corpuscular Volume 92 FL (80-99) Mean Corpuscular Hemoglobin 31.8 PG (27.0-31.0) H Mean Corpuscular Hemoglobin Concent 34.6 G/DL (32.0-36.0) Red Cell Distribution Width 12.0 % (11.6-14.8) Platelet Count 316 K/UL (150-450) Mean Platelet Volume 6.0 FL (6.5-10.1) L Neutrophils (%) (Auto) 68.6 % (45.0-75.0) Lymphocytes (%) (Auto) 23.5 % (20.0-45.0) Monocytes (%) (Auto) 5.9 % (1.0-10.0) Eosinophils (%) (Auto) 0.3 % (0.0-3.0) Basophils (%) (Auto) 1.7 % (0.0-2.0) D-Dimer < 0.19 mg/L FEU Sodium Level 140 MMOL/L (136-145) Potassium Level 4.0 MMOL/L (3.5-5.1) Chloride Level 106 MMOL/L (98-107) Carbon Dioxide Level 27 MMOL/L (21-32) Anion Gap 8 mmol/L (5-15) Blood Urea Nitrogen 11 mg/dL (7-18) Creatinine 0.7 MG/DL (0.55-1.30) Estimate Glomerular Filtration Rate > 60 mL/min (>60) Glucose Level 134 MG/DL (74-106) H Calcium Level 9.6 MG/DL (8.5-10.1) Total Bilirubin 0.4 MG/DL (0.2-1.0) Aspartate Amino Transferase (AST) 14 U/L (15-37) L Alanine Aminotransferase (ALT) 19 U/L (12-78) Alkaline Phosphatase 73 U/L (46-116) Total Creatine Kinase 90 U/L (26-308) Creatine Kinase MB 0.9 NG/ML (0.0-3.6) Creatine Kinase MB Relative Index 1.0 Troponin I 0.000 ng/mL (0.000-0.056) Pro-B-Type Natriuretic Peptide 19 pg/mL (0-125) Total Protein 7.3 G/DL (6.4-8.2) Albumin 3.7 G/DL (3.4-5.0) Globulin 3.6 g/dL Albumin/Globulin Ratio 1.0 (1.0-2.7) Urine Color Pale yellow Urine Appearance Clear Urine pH 7 (4.5-8.0) Urine Specific [place] 1.010 (1.005-1.035) Urine Protein Negative (NEGATIVE) Urine Glucose (UA) Negative (NEGATIVE) Urine Ketones Negative (NEGATIVE) Urine Blood Negative (NEGATIVE) Urine Nitrite Negative (NEGATIVE) Urine Bilirubin Negative (NEGATIVE) Urine Urobilinogen Normal MG/DL (0.0-1.0) Urine Leukocyte Esterase 1+ (NEGATIVE) H Urine RBC 0-2 /HPF (0 - 2) Urine WBC 2-4 /HPF (0 - 2) Urine Squamous Epithelial Cells Few /LPF (NONE/OCC) Urine Bacteria None /HPF (NONE) EKG Diagnostic Results EKG Time: 23:10 Rate: normal Rhythm: NSR ST Segments: no acute changes Other Impression Sinus rhythm, normal axis, normal intervals, no T wave or ST segment changes. Rhythm Strip Diag. Results Rhythm Strip Time: 23:10 EP Interpretation: yes Rate: 80s Rhythm: NSR, no PVC's, no ectopy Chest X-Ray Diagnostic Results Chest X-Ray Diagnostic Results : Chest X-Ray Ordered: Yes # of Views/Limited/Complete: 1 View Indication: Shortness of Breath EP Interpretation: Yes PA Xray: Interpretation reviewed Interpretation: no consolidation, no effusion, no pneumothorax, no acute cardiopulmonary disease Impression: No acute disease Electronically Signed by: Electronically signed by Dr. Marcio Fernando Reevaluation Time: 01:34 Last Vital Signs Date Time Temp Pulse Resp B/P (MAP) Pulse Ox O2 Delivery O2 Flow Rate FiO2 12/15/18 23:15 75 27 Room Air 12/15/18 23:15 97.9 118/75 97 Status: improved Reevaluation Impression Labs have returned largely within normal limits. There is no evidence of infiltrate or other abnormality on chest x-ray. Troponin is negative, BNP within normal limits, blood work otherwise unremarkable and no signs of an acute urinary tract infection. The patient had significant improvement in her symptoms after receiving a GI cocktail making GERD and possible esophagitis/ esophageal spasm more likely. Patient will be started on PPI and follow-up as an outpatient with her PMD. She will continue her albuterol but will not prescribe any further prednisone at this time. She will follow-up closely with her PMD for further testing and return to the emergency department any other symptoms. She understands and agrees with the treatment plan was discharged home Disposition: HOME, SELF-CARE Condition: Improved Scripts Omeprazole (OMEPRAZOLE) 20 Mg Capsule. 20 MG ORAL DAILY for 30 Days, #30 CAP Prov: Marcio Fernando MD 12/16/18 Marcio Fernando MD Dec 15, 2018 23:32
[2018-12-16 00:33] LABS: BASOPHILS % (AUTO) 1.7 % (0.0-2.0); EOSINOPHILS % (AUTO) 0.3 % (0.0-3.0); HEMATOCRIT 37.4 % (37.0-47.0); HEMOGLOBIN 12.9 G/DL (12.0-16.0); LYMPHOCYTES % (AUTO) 23.5 % (20.0-45.0); MEAN CORPUSCULAR VOLUME 92 FL (80-99); MONOCYTES % (AUTO) 5.9 % (1.0-10.0); NEUTROPHILS % (AUTO) 68.6 % (45.0-75.0); PLATELET COUNT 316 K/UL (150-450); RED BLOOD COUNT 4.07 M/UL (4.20-5.40); WHITE BLOOD COUNT 9.7 K/UL (4.8-10.8)
[2018-12-16 00:55] LABS: ANION GAP 8 mmol/L (5-15); BLOOD UREA NITROGEN 11 mg/dL (7-18); CALCIUM 9.6 MG/DL (8.5-10.1); CARBON DIOXIDE 27 MMOL/L (21-32); CHLORIDE 106 MMOL/L (98-107); CREATININE 0.7 MG/DL (0.55-1.30); SODIUM 140 MMOL/L (136-145)
[2018-12-16 01:09] LABS: ALANINE AMINOTRANSFERASE 19 U/L (12-78); ALBUMIN 3.7 G/DL (3.4-5.0); ALKALINE PHOSPHATASE 73 U/L (46-116); ASPARTATE AMINO TRANSFERASE 14 U/L (15-37); BILIRUBIN,TOTAL 0.4 MG/DL (0.2-1.0); CKMB 0.9 NG/ML (0.0-3.6); CREATINE KINASE 90 U/L (26-308)
[2018-12-16 01:26] LABS: APPEARANCE,URINE CLEAR; BILIRUBIN, URINE NEGATIVE (NEGATIVE); COLOR,URINE PALE YELLOW; GLUCOSE, URINE (UA) NEGATIVE (NEGATIVE); KETONES,URINE NEGATIVE (NEGATIVE); LEUKOCYTE ESTERASE ,URINE 1+ (NEGATIVE); NITRITE,URINE NEGATIVE (NEGATIVE); PH,URINE 7 (4.5-8.0); PROTEIN,URINE NEGATIVE (NEGATIVE); UROBILINOGEN,URINE NORMAL MG/DL (0.0-1.0)
[2018-12-16] MEDS ORDERED: OMEPRAZOLE20 M2 ORAL (01:38)
[2018-12-16 01:45] VITALS: BP 118/75
--- NOTE | 2018-12-16 01:45 | NUR ---
ER DISCHARGE NOTE: Patient is cleared to be discharged per ERMD, pt is aox4, on room air, with stable vital signs. pt was given dc and prescription instructions, pt was able to verbalize understanding, pt id band and iv site removed without complications. pt is able to ambulate with steady gait. pt took all belongings.
--- NOTE | 2018-12-16 10:56 | Diagnostic Imaging Report ---
Indication: Dyspnea Comparison: 12/10/2018 A single view chest radiograph was obtained. Findings: Cardiomediastinal appearance is within normal limits for age. The lungs are clear. Pulmonary vascularity is appropriate. The diaphragmatic contour is smooth and costophrenic angles are sharp. No pleural effusions are identified. The bones are unremarkable. Impression: No acute findings
--- NOTE | 2018-12-18 17:37 | Cardiology Report ---
APPROVED REPORT EKG Measurement Heart [id number] Normal sinus rhythm Normal ECG
== END 2018-12-16 01:45 | disposition home or self-care (01) ==
LOC: EMR 23:25
DX: R06.00 Dyspnea, unspecified (principal); J45.909 Unspecified asthma, uncomplicated; I10 Essential (primary) hypertension; Z88.1 Allergy status to other antibiotic agents; Z88.2 Allergy status to sulfonamides
CPT/HCPCS: 36415; 71045; 80053; 81003; 82550; 82553; 83880; 84484; 85025; 85379; 93005; 94640; 99284